=== PATIENT | female | born 1945 | race Caucasian/White ===

== ENCOUNTER → 2017-02-21 | Outpatient (CLI) | payer OTHER, MEDICARE | LOC: BMCIMAGING 14:20 | DX: Z12.31 Encounter for screening mammogram for malignant neoplasm of breast (principal); Z80.3 Family history of malignant neoplasm of breast | CPT/HCPCS: G0202 ==

== ENCOUNTER → 2018-02-24 | Outpatient (CLI) | payer OTHER, MEDICARE | LOC: BMCIMAGING 13:30 | PROVIDERS: ATTEND Internal Medicine | DX: Z12.31 Encounter for screening mammogram for malignant neoplasm of breast (principal); Z80.3 Family history of malignant neoplasm of breast ==

== ENCOUNTER → 2018-08-12 | Outpatient (CLI) | payer OTHER, MEDICARE | LOC: FIMAGING 12:50 | PROVIDERS: ATTEND Radiology Diagnostic Radiology | DX: I83.812 Varicose veins of left lower extremity with pain (principal); I83.892 Varicose veins of left lower extremity with other complications ==

== ENCOUNTER 2018-12-07 11:34 | Day surgery (SDC) | payer OTHER, MEDICARE ==
[2018-12-07] MEDS ORDERED: FLUMAZENIL 0.5 MG/5 ML MDV IVP PRN (11:43)
[2018-12-07] MEDS ORDERED: MIDAZOLAM 2 MG/2 ML VIAL IVP PRN (11:43)
[2018-12-07] MEDS ORDERED: ceFAZolin 2 GM/DEXTROSE 100 ML IV ONE (11:43)
[2018-12-07] MEDS ORDERED: fentaNYL 100 MCG/2 ML INJ IVP PRN (11:43)
[2018-12-07] MEDS ORDERED: NALOXONE HCL 0.4 MG/ML INJ IVP PRN (11:43)
[2018-12-07] MEDS ORDERED: ONDANSETRON 4 MG/2 ML VIAL IVP ONE (11:43)
[2018-12-07] MEDS ORDERED: MEPERIDINE 25 MG/ML SYR IVP PRN (11:43)
[2018-12-07] MEDS ORDERED: NS 1,000 ML IV ONE (11:43)
[2018-12-07] MEDS ORDERED: LIDO/EPI 1% **for epidural** 30 ML SDV ONE (13:37)
[2018-12-07] MEDS ORDERED: SODIUM TETRADECYL SULFATE 3% 2 ML VIAL IV ONE (13:37)
[2018-12-07] MEDS ORDERED: LIDOCAINE 1% 300 MG/30 ML SDV ONE (13:37)
[2018-12-07] MEDS ORDERED: ONDANSETRON 4 MG/2 ML VIAL IVP PRN (14:57)
[2018-12-07] MEDS ORDERED: HYDROCODONE/APAP 5/325 TAB PO PRN (14:57)
[2018-12-07] MEDS ORDERED: ONDANSETRON DISINTEGRATING 4 MG TAB PO PRN (14:57)
--- NOTE | 2018-12-07 14:58 | PDPROPOC ---
Sedation Plan of Care Sedation Plan of Care: vital signs stable, mental status noted, patient educated of risks, benefits, alternatives, patient can tolerate sedation ASA Classification: ASA 2 Planned drugs: fentanyl, midazolam Mallampati Score: Class 2 Mallampati Reference Image: Patient passed 3-3-2 rule?: Yes
--- NOTE | 2018-12-07 14:59 | PDGENHP ---
History & Physical Chief Complaint: LLE varicose veins History of Present Illness: pain and swelling Pertinent Past, Social, Family History: non smoker Relevant Physical Exam: large ropey varicose veins mapped on LT leg. Cardiorespiratory Assessment: rrr,cta
[2018-12-07] MEDS ORDERED: NS 1,000 ML IV SCH (15:00)
--- NOTE | 2018-12-07 15:29 | PDRADPN ---
Radiology Procedure Note Date of Procedure: 12/07/18 Radiologist: Hilaria Overton Anesthesia: IV Sedation Pre-op Diagnosis: LLE varicose veins Post-op Diagnosis: same Indication: pain and swelling
[2018-12-07 18:42] VITALS: BP 100/70
== END 2018-12-07 18:35 | disposition home or self-care (01) ==
LOC: FIMAGING 11:34
PROVIDERS: ATTEND Radiology Diagnostic Radiology
DX: I83.812 Varicose veins of left lower extremity with pain (principal)
CPT/HCPCS: J0690; J1644; J2250; J2310; J2405; J3010

== ENCOUNTER → 2018-12-22 | Outpatient (CLI) | payer OTHER, MEDICARE | LOC: FIMAGING 15:58 ==

== ENCOUNTER → 2019-02-25 | Outpatient (CLI) | payer OTHER, MEDICARE | LOC: BMCIMAGING 12:58 | PROVIDERS: ATTEND Internal Medicine | DX: Z12.31 Encounter for screening mammogram for malignant neoplasm of breast (principal); Z80.3 Family history of malignant neoplasm of breast ==